=== PATIENT | male | born 1985 | race American Indian/Alaskan Native ===

== ENCOUNTER 2016-09-20 21:05 | Emergency (ER) | payer SELFPAY ==
[2016-09-20 22:16] LABS: Hematocrit 42.1 % (35.5-45.6); Hemoglobin 13.8 gm/dl (11.8-15.2); Mean Corpuscular HGB Conc 33 % (32-34); Mean Corpuscular Hemoglobin 30 pg (28-32); Mean Corpuscular Volume 92 fl (84-94); Platelet Count 240 K/mm3 (140-440); Red Blood Count 4.58 M/mm3 (3.65-5.03); Red Cell Distribution Width 13.3 % (13.2-15.2)
[2016-09-20 22:30] LABS: Anion Gap 19 mmol/L; BUN/Creatinine Ratio 10.66; Blood Urea Nitrogen 16 mg/dL (9-20); Calcium 9.4 mg/dL (8.4-10.2); Carbon Dioxide 28 mmol/L (22-30); Chloride 99.5 mmol/L (98-107); Glucose 89 mg/dL (75-100); Potassium 4.5 mmol/L (3.6-5.0); Sodium 142 mmol/L (137-145)
[2016-09-20 23:35] LABS: Basophils % (Manual) 0 % (0.0-1.8); Blastocytes % (Manual) 0 %; Platelet Estimate Consistent w Auto; RBC Morphology Normal
[2016-09-20 23:36] LABS: Diff Status Complete
[2016-09-20 23:45] VITALS: BP 125/78
--- NOTE | 2016-09-21 10:05 | XRay Report ---
ROUTINE CHEST, TWO VIEWS: HISTORY: Shortness of breath. The trachea, heart, mediastinal contour, lung ennis and bony thorax are unremarkable. IMPRESSION: Unremarkable chest x-ray.
--- NOTE | 2016-09-21 14:14 | ED Elopement Review ---
ED Pt Elopement review - Results review Lab results: Laboratory Tests 09/20/16 09/20/16 21:47 21:47 WBC 5.0 RBC 4.58 Hgb 13.8 Hct 42.1 MCV 92 MCH 30 MCHC 33 RDW 13.3 Plt Count 240 Add Manual Diff Complete Total Counted 100 Seg Neutrophils % [place] [facility] Judge Seg Neuts % (Manual) 46.0 Band Neutrophils % 0 Lymphocytes % (Manual) 45.0 H Reactive Lymphs % (Man) 0 Monocytes % (Manual) 8.0 H Eosinophils % (Manual) 1.0 Basophils % (Manual) 0 Metamyelocytes % 0 Myelocytes % 0 Promyelocytes % 0 Blast Cells % 0 Nucleated RBC % Not Reportable Seg Neutrophils # Man 2.3 Band Neutrophils # 0.0 Lymphocytes # (Manual) 2.3 Abs React Lymphs (Man) 0.0 Monocytes # (Manual) 0.4 Eosinophils # (Manual) 0.1 Basophils # (Manual) 0.0 Metamyelocytes # 0.0 Myelocytes # 0.0 Promyelocytes # 0.0 Blast Cells # 0.0 WBC Morphology Not Reportable Hypersegmented Neuts Not Reportable Hyposegmented Neuts Not Reportable Hypogranular Neuts Not Reportable Smudge Cells Not Reportable Toxic Granulation Not Reportable Toxic Vacuolation Not Reportable Dohle Bodies Not Reportable Pelger-Huet Anomaly Not Reportable Clyde Rods Not Reportable Platelet Estimate Consistent w auto Clumped Platelets Not Reportable Plt Clumps, EDTA Not Reportable Large Platelets Not Reportable Giant Platelets Not Reportable Platelet Satelliting Not Reportable Plt Morphology Comment Not Reportable RBC Morphology Normal Dimorphic RBCs Not Reportable Polychromasia Not Reportable Hypochromasia Not Reportable Poikilocytosis Not Reportable Anisocytosis Not Reportable Microcytosis Not Reportable Macrocytosis Not Reportable Spherocytes Not Reportable Pappenheimer Bodies Not Reportable Sickle Cells Not Reportable Target Cells Not Reportable Tear Drop Cells Not Reportable Ovalocytes Not Reportable Helmet Cells Not Reportable [place] Bodies Not Reportable [place] Rings Not Reportable [place] Cells Not Reportable Bite Cells Not Reportable Crenated Cell Not Reportable Elliptocytes Not Reportable Acanthocytes (Spur) Not Reportable Rouleaux Not Reportable Hemoglobin C Crystals Not Reportable Schistocytes Not Reportable Malaria parasites Not Reportable Hugo Bodies Not Reportable Hem Pathologist Commnt No Carbon Dioxide 28 BUN 16 Creatinine 1.5 Estimated GFR 55 BUN/Creatinine Ratio 10.66 Glucose 89 Calcium 9.4 Troponin T < 0.010 - Call Back decision Pt Call Back Decision: No action required
[2016-09-21] MEDS ORDERED: LASIX ONE ×2 (18:47→18:48)
[2016-09-21] MEDS ORDERED: BABY ASPIRIN ONE ×2 (18:47→18:48)
[2016-09-21] MEDS ORDERED: PROTONIX IV ONE (18:48)
== END 2016-09-21 02:15 | disposition left against medical advice (07) ==
LOC: ED 21:05
DX: R07.89 Other chest pain (principal); R06.00 Dyspnea, unspecified; Z53.21 Procedure and treatment not carried out due to patient leaving prior to being seen by health care provider
CPT/HCPCS: 36415; 71020; 80048; 84484; 85007; 85025; 93005; 93010; C9113; J1940

== ENCOUNTER 2016-10-29 02:01 | Emergency (ER) | payer SELFPAY ==
--- NOTE | 2016-10-29 02:54 | XRay Report ---
FINAL REPORT PROCEDURE: XR CHEST 1V AP TECHNIQUE: Chest radiograph anteroposterior view. CPT 34981 HISTORY: Chest Pain COMPARISON: No prior studies are available for comparison. FINDINGS: Heart: Normal. Mediastinum/Vessels: Normal. Lungs/Pleural space: Normal. Bony thorax: No acute osseous abnormality. Life support devices: None. IMPRESSION: No acute cardiopulmonary abnormality.
--- NOTE | 2016-10-29 03:05 | Emergency Department Report ---
HPI - General Time Seen by Provider: 10/29/16 02:26 - HPI HPI: This is a 30-year-old Afro-[place]elsh male who presents to the emergency department with a complaint of a 2-3 day history of some upper chest discomfort. The patient says it happens when he gets up to stand or when he is laying on his side. It is a heavy pressure sensation. He has not taken anything for symptoms prior to presentation. He denies any shortness of breath , nausea, vomiting, fever, back pain or diaphoresis. He has a past mental history of vitamin D deficiency. He is not a tobacco smoker but occasionally uses marijuana. Patient says he is also been having some upper respiratory type symptoms for the past few days. The patient went to [facility] yesterday for similar symptoms, had a full cardiac workup, and was discharged home with encouragement to see a tack picker. No recent travel or sick contacts at home. He does not have a primary care doctor. ED Past Medical Hx - Past Medical History Previous Medical History?: Yes Hx Pulmonary Embolism: Yes (At age of 9.) Additional medical history: vit D deficiency - Surgical History Past Surgical History?: Yes Additional Surgical History: bladder surgery as a child - Social History Smoking Status: Current Some Day Smoker Substance Use Type: None - Medications Home Medications: Home Medications Medication Instructions Recorded Confirmed Last Taken Type No Known Home Medications [No 10/29/16 10/29/16 Unknown History Reported Home Medications] ED Review of Systems ROS: Stated complaint: CHEST PAIN Other details as noted in HPI Comment: All other systems reviewed and negative Constitutional: denies: chills, fever Eyes: denies: eye pain, eye discharge, vision change ENT: denies: ear pain, throat pain Respiratory: cough. denies: shortness of breath, wheezing Cardiovascular: chest pain. denies: palpitations Gastrointestinal: denies: abdominal pain, nausea, diarrhea Genitourinary: denies: urgency, dysuria Musculoskeletal: denies: back pain, joint swelling, arthralgia Skin: denies: rash, lesions Neurological: denies: headache, weakness, paresthesias Physical Exam - Physical Exam Vital Signs: Vital Signs 10/29/16 10/29/16 02:30 02:38 Temperature 98.7 F 98.0 F Pulse Rate 48 L 45 L Respiratory 18 Rate Blood Pressure 141/83 Blood Pressure 143/83 [Right] O2 Sat by Pulse 100 100 Oximetry Physical Exam: GENERAL: The patient is well-developed well-nourished. HEENT: Normocephalic. Atraumatic. Extraocular motions are intact. Patient has moist mucous membranes. Pupils equal reactive to light bilaterally. NECK: Supple. Trachea is midline. CHEST/LUNGS: Clear to auscultation. There is no respiratory distress noted. HEART/CARDIOVASCULAR: Regular. There is some mild bradycardia. There is no gallop rub or murmur. ABDOMEN: Abdomen is soft, nontender. Patient has normal bowel sounds. There is no abdominal distention. SKIN: Skin is warm and dry. NEURO: The patient is awake, alert, and oriented. The patient is cooperative. The patient has no focal neurologic deficits. The patient has normal speech. MUSCULOSKELETAL: There is no tenderness or deformity. There is no limitation range of motion. There is no evidence of acute injury. ED Course Vital Signs 10/29/16 10/29/16 02:30 02:38 Temperature 98.7 F 98.0 F Pulse Rate 48 L 45 L Respiratory 18 Rate Blood Pressure 141/83 Blood Pressure 143/83 [Right] O2 Sat by Pulse 100 100 Oximetry ED Medical Decision Making - Lab Data Result diagrams: 10/29/16 03:08 10/29/16 03:08 - EKG Data -: EKG Interpreted by Mo EKG shows normal: sinus rhythm, axis, intervals, QRS complexes, ST-T waves ( isolated t wave inversion to lead III) - EKG Data When compared to previous EKG there are: no significant change Interpretation: normal EKG, unchanged when compared t (09/20/16) - Radiology Data Radiology results: image reviewed interpreted by me: Chest x-ray did not show any acute process. Heart is normal shape and size. No effusions. No pneumothorax. No signs of pneumonia seen. - Medical Decision Making 30-year-old male presents to the emergency department with a few days of some chest pain that only occurs in the patient is laying on his side or getting up to standing. There is no significant shortness of breath. Patient has no risk factors for coronary artery disease. EKG does not show any signs of ST elevation [place], ischemia or dysrhythmia. Patient's labs are unremarkable including no leukocytosis, electrolytes abnormalities, renal insufficiency, glucose abnormalities and the patient has a negative troponin. Chest x-ray does not show any acute process. Patient was at [facility] last night and had a negative cardiac workup there as well. Patient does have some bradycardia. When it is sleeping and will go down into the 40s but once awake it is in the 50s and 60s. For this reason and for his chest discomfort, I will refer the patient for cardiology but I do not feel that the patient requires inpatient admission at this time. I went to reevaluate the patient and he is sleeping, resting comfortably and in no acute distress. HEART Score for Major Cardiac Events from [email or web address] on 10/29/2016 All calculations should be rechecked by clinician prior to use RESULT SUMMARY: 0 points Low Score (0-3 points) Risk of MACE of 0.9-1.7%. INPUTS: History > 0 = Slightly suspicious EKG > 0 = Normal Age > 0 = < 45 Risk factors > 0 = No known risk factors Troponin > 0 = normal limit - Differential Diagnosis AK, Costochondritis, GERD, Pneumonia Critical Care Time: No Critical care attestation.: If time is entered above; I have spent that time in minutes in the direct care of this critically ill patient, excluding procedure time. ED Disposition Clinical Impression: Bradycardia Chest pain Qualifiers: Chest pain type: unspecified Qualified Code(s): R07.9 - Chest pain, unspecified Hypertension Qualifiers: Hypertension type: essential hypertension Qualified Code(s): I10 - Essential ( primary) hypertension Disposition: DISCHARGED TO HOME OR SELFCARE Is pt being admited?: No Condition: Stable Instructions: Chest Pain (ED), Hypertension (ED) Additional Instructions: Please follow-up with a primary care doctor in the next few days. I also given you a referral for a local tack picker, Dr. Gonzalez, to follow up regarding her chest pain and bradycardia. Return to the emergency department with any worsening of your symptoms or any acute distress. Referrals: MARICEL HERNANDEZ MD [Primary Care Provider] - 3-5 Days RAUL GONZALEZ MD [Staff Physician] - 3-5 Days [facility] [Outside] - 3-5 Days [facility] [Outside] - 3-5 Days Time of Disposition: 04:33
[2016-10-29 03:50] LABS: Hematocrit 39.4 % (35.5-45.6); Hemoglobin 13.2 gm/dl (11.8-15.2); Mean Corpuscular HGB Conc 34 % (32-34); Mean Corpuscular Hemoglobin 30 pg (28-32); Mean Corpuscular Volume 90 fl (84-94); Platelet Count 219 K/mm3 (140-440); Red Blood Count 4.36 M/mm3 (3.65-5.03); Red Cell Distribution Width 13.4 % (13.2-15.2); White Blood Count 6.1 K/mm3 (4.5-11.0)
[2016-10-29 03:59] LABS: Anion Gap 14 mmol/L; BUN/Creatinine Ratio 9.28; Blood Urea Nitrogen 13 mg/dL (9-20); Calcium 8.9 mg/dL (8.4-10.2); Carbon Dioxide 27 mmol/L (22-30); Chloride 99.6 mmol/L (98-107); Creatine Kinase MB 1.4 ng/mL (0.0-4.0); Glucose 97 mg/dL (75-100); Potassium 3.8 mmol/L (3.6-5.0); Sodium 137 mmol/L (137-145)
[2016-10-29 05:25] LABS: Basophils % (Manual) 0 % (0.0-1.8); Blastocytes % (Manual) 0 %
[2016-10-29 05:26] LABS: Anisocytosis 1+; Diff Status Complete; Platelet Estimate Consistent w Auto
[2016-10-29 05:36] VITALS: BP 118/65
== END 2016-10-29 05:38 | disposition home or self-care (01) ==
LOC: ED 02:01
DX: I10 Essential (primary) hypertension (principal); R07.9 Chest pain, unspecified; R00.1 Bradycardia, unspecified; Z86.711 Personal history of pulmonary embolism; Z72.0 Tobacco use
CPT/HCPCS: 36415; 71010; 80048; 82550; 82553; 84484; 85007; 85025; 93005; 93010; 99285

== ENCOUNTER 2016-11-03 23:24 | Emergency (ER) | payer SELFPAY ==
[2016-11-03 23:56] VITALS: BP 139/93
[2016-11-04 00:14] LABS: Anion Gap 17 mmol/L; BUN/Creatinine Ratio 9.37; Blood Urea Nitrogen 15 mg/dL (9-20); Carbon Dioxide 26 mmol/L (22-30); Chloride 99.3 mmol/L (98-107); Glucose 96 mg/dL (75-100); Potassium 4.1 mmol/L (3.6-5.0); Sodium 138 mmol/L (137-145)
[2016-11-04 00:27] LABS: Basophils % (Auto) 0.4 % (0.0-1.8); Eosinophils % (Auto) 1.5 % (0.0-4.3); Hematocrit 40.1 % (35.5-45.6); Hemoglobin 13.2 gm/dl (11.8-15.2); Mean Corpuscular HGB Conc 33 % (32-34); Mean Corpuscular Hemoglobin 30 pg (28-32); Mean Corpuscular Volume 92 fl (84-94); Platelet Count 232 K/mm3 (140-440); Red Blood Count 4.36 M/mm3 (3.65-5.03); Red Cell Distribution Width 13.2 % (13.2-15.2); White Blood Count 6.3 K/mm3 (4.5-11.0)
== END 2016-11-04 03:45 | disposition left against medical advice (07) ==
LOC: ED 23:24
DX: R07.9 Chest pain, unspecified (principal); R42 Dizziness and giddiness; R03.0 Elevated blood-pressure reading, without diagnosis of hypertension; Z87.891 Personal history of nicotine dependence; Z86.711 Personal history of pulmonary embolism; Z53.21 Procedure and treatment not carried out due to patient leaving prior to being seen by health care provider
CPT/HCPCS: 36415; 80048; 84484; 85025; 93005; 93010